=== PATIENT | male | born 1960 | race Caucasian/White ===

== ENCOUNTER 2020-04-23 12:36 | Outpatient (CLI) | payer BC, SELFPAY ==
--- NOTE | ~2020-04-23 | XR_ITS ---
EXAMINATION: XR chest 2V EXAM DATE: 04/23/2020 13:28 INDICATION: Shortness of breath. TECHNIQUE: Frontal and lateral projections of the chest obtained and reviewed. Comparison is made to prior examination from 09/07/2018. FINDINGS: The lungs are clear. There are no pleural effusions. The cardiomediastinal silhouette is within normal limits. There is no pneumothorax suspected. The bones and soft tissues are unremarkab le. IMPRESSION: Normal chest x-ray exam. Reviewed, dictated and finalized at location B. IMPRESSION: Normal chest x-ray exam.
[2020-04-23 13:31] LABS: Basophils Absolute Auto 0.1 K/mm3 (0.0-0.1); Basophils Percent Auto 0.7 % (0.2-1.2); Eosinophils Absolute Auto 0.2 K/mm3 (0-0.3); Eosinophils Percent Auto 3.2 % (0-4.4); Hematocrit 43.6 % (42.0-52.0); Hemoglobin 14.6 g/dL (14.0-18.0); Immature Granulocyte Absolute 0.02 K/mm3 (0.00-0.031); Immature Granulocyte Percent A 0.3 % (0-0.5); Lymphocytes Absolute Auto 2.62 K/mm3 (0.9-3.2); Lymphocytes Percent Auto 35.4 % (18.3-44.2); Mean Corpuscular HGB Conc 33.5 g/dl (32-36); Mean Corpuscular Hemoglobin 31.9 pg (26-34); Mean Corpuscular Volume 95.4 fl (80-100); Mean Platelet Volume 9.7 fl (7.4-10.4); Monocytes Absolute Auto 0.5 K/mm3 (0.1-0.6); Monocytes Percent Auto 6.5 % (2.6-8.5); Neutrophils Percent Auto 53.9 % (45.5-73.1); Platelet Count Result 247 k/mm3 (150-375); Red Blood Count 4.57 M/mm3 (4.6-6.20); Red Cell Distribution Width 13.3 % (11.5-14.5); White Blood Count 7.4 K/mm3 (4.5-10.0)
[2020-04-23 13:48] LABS: Alanine Aminotransferase 30 U/L (4-50); Albumin Level 4.5 g/dL (3.5-5.1); Alkaline Phosphatase 113 U/L (38-126); Aspartate Amino Transferase 31 U/L (17-59); Bilirubin,Total 0.2 mg/dL (0.2-1.3); Blood Urea Nitrogen 22 mg/dL (9-20); Calcium 9.7 mg/dL (8.4-10.2); Carbon Dioxide 28 mmol/L (22-30); Chloride 103 mmol/L (98-107); Estimated Glomerular Filt Rate 48; Glucose 114 mg/dL (75-110); Potassium 4.2 mmol/L (3.4-5.0); Sodium 141 mmol/L (137-145)
== END 2020-04-23 12:37 | disposition home or self-care (01) ==
PROVIDERS: PCP Internal Medicine; Visit Provider Internal Medicine
DX: R06.02 Shortness of breath (principal); R68.89 Other general symptoms and signs
CPT/HCPCS: 36415; 71046; 80053; 85025

== ENCOUNTER 2020-05-09 10:54 | Outpatient (CLI) | payer BC, SELFPAY ==
[2020-05-09 11:58] LABS: Cholesterol 240 mg/dL (0-200); HDL Direct 31 mg/dL; Triglycerides 353 mg/dL (<150)
[2020-05-09 12:08] LABS: LDL Cholesterol Direct 118 mg/dL
[2020-05-09 12:31] LABS: Prostate Specific Antigen 2.4 ng/mL (< OR = 4.0)
== END 2020-05-09 10:55 | disposition home or self-care (01) ==
LOC: ANHLAB 10:56
PROVIDERS: PCP Internal Medicine; Visit Provider Internal Medicine
DX: E78.1 Pure hyperglyceridemia (principal); Z12.5 Encounter for screening for malignant neoplasm of prostate
CPT/HCPCS: 36415; 80061; 84153; 84443; G0103

== ENCOUNTER 2023-11-15 00:40 | Day surgery (SDC) | payer BC, SELFPAY ==
[2023-10-19 11:30] VITALS: BMI 31.2
--- NOTE | 2023-11-11 13:20 | SUR.PREOP ---
Patient called regarding upcoming procedure. Reviewed preop instructions, appointment times, and procedure prep.
[2023-11-15 10:11] VITALS: BP 127/77; PULSE 62; RESP 20; TEMP 35.8; O2SAT 99
[2023-11-15] MEDS: LACTATED RINGERS 1,000 ML 150 ML IV CONT (10:25)
--- NOTE | 2023-11-15 10:42 | WPDANESEPPF ---
Anes - Initial Pre Proc Eval Procedure: Operation Date: 11/15/23 11:30 Proposed Procedures p Colonoscopy - Rashad Chou MD Date/Time: 11/15/23 10:42 Surgeon: Rashad Chou MD Pre Op Diagnosis: hx colon polyps Patient Data Age: 63 Gender: M Height: 1.83 m Weight: 97.6 kg Last Vital Signs Temp 96.5 F L 11/15/23 10:11 Pulse 62 11/15/23 10:11 Resp 20 11/15/23 10:11 BP 127/77 11/15/23 10:11 Pulse Ox 99 11/15/23 10:11 O2 Del Method Room Air 11/15/23 10:11 Allergies Allergy/AdvReac Type Severity Reaction Status Date / Time No Known Allergies Allergy Unknown Verified 11/15/23 10:09 Home Medications Medication Instructions Recorded Confirmed Type multivitamin 1 tablet PO DAILY 08/20/19 11/15/23 History aspirin 81 mg chewable tablet 81 mg PO DAILY 10/19/23 11/15/23 History Patient hx anesthesia problems: none Family hx anesthesia problems: none Results Review: All pre-operative results and documents have been reviewed as part of the pre-operative evaluation. [facility] Family History Family History (Updated 01/18/19 @ 08:57 by DOCTOR UNKNOWN) Father Hypertension Mother Family history of malignant neoplasm Patient's mother is , Onset Age: 80 Grandparent Family history of aortic aneurysm Malignant neoplasm of prostate Social History Social History Smoking status: Never smoker Second hand tobacco smoke exposure: No Alcohol intake: current Drinks per week: 2 Substance use type: does not use Living arrangements: with family Spiritual care concerns: No Anes - Eval Final PreProcedure Day of Procedure 11/15/23 10:42 Patient weight: obese Heart: regular rate and rhythm Lungs: clear to auscultation Airway: Mallampati scale class II Neurological: alert and oriented Last oral intake: >/= 8 hours ASA classification: II Emergent: no Anesthetic plan: proceed Anesthesia type and monitoring: general GIVS and standard monitoring Results Review: All pre-operative results and documents have been reviewed as part of the pre-operative evaluation. Informed Consent: The patient's anesthetic plan and its attendant risks and benefits were discussed with the patient/family/POA. Questions were solicited and answers provided to the satisfaction of the patient/family/POA.
--- NOTE | 2023-11-15 11:01 | PM.HPGS ---
History of Present Illness History of Present Illness Consent: Risks, benefits, and alternatives have been discussed and questions answered. Patient agrees to proceed with procedure. Chief complaint: hx colon polyps Narrative: Luisito Lechuga is a 63 year old male with colon polyp 7 years ago Review of Systems Constitutional: Constitutional: Denies headache(s) and Denies weakness Eyes: Eyes: Denies blurry vision ENT: Reports Normal hearing present, Denies headache(s) and Denies neck pain Cardiovascular: Cardiovascular: Denies chest pain and Denies dyspnea Respiratory: Respiratory: Denies dyspnea Gastrointestinal: Gastrointestinal: Reports no additional gastrointestinal complaints Genitourinary: Genitourinary: Denies dysuria Musculoskeletal: Musculoskeletal: Denies neck pain Integumentary/Breasts: Skin/Breast: Denies dry skin Neurologic: Reports Normal hearing present, Denies headache(s) and Denies weakness Psychiatric: Psychiatric: Denies anxiety Endocrine: Endocrine: Denies change in body appearance Hematologic/Lymphatic: Hematologic/Lymphatic: Denies easy bleeding Allergic/Immunologic: Allergic/Immunologic: Denies urticaria PMFSH Past Medical History Medical History (Updated 11/15/23 @ 11:02 by Rashad Chou MD) Colon polyp Family History Family History (Updated 01/18/19 @ 08:57 by DOCTOR UNKNOWN) Father Hypertension Mother Family history of malignant neoplasm Patient's mother is , Onset Age: 80 Grandparent Family history of aortic aneurysm Malignant neoplasm of prostate Social History Social History Smoking status: Never smoker Second hand tobacco smoke exposure: No Alcohol intake: current Drinks per week: 2 Substance use type: does not use Living arrangements: with family Spiritual care concerns: No Meds Home Medications and Allergies Home Medications Medication Instructions Recorded Confirmed Type multivitamin 1 tablet PO DAILY 08/20/19 11/15/23 History aspirin 81 mg chewable tablet 81 mg PO DAILY 10/19/23 11/15/23 History Allergies Allergy/AdvReac Type Severity Reaction Status Date / Time No Known Allergies Allergy Unknown Verified 11/15/23 10:09 Vital Signs Vital Signs - 24 hr 11/15/23 10:11 Temperature 96.5 F L Pulse Rate 62 Respiratory Rate 20 Blood Pressure 127/77 Pulse Oximetry 99 Oxygen Delivery Room Air Exam Const: General: comfortable and no acute distress HENMT: Face/Nose/Sinus: Normal nares present Eyes: General: appearance normal, both eyes and all related structures Neck: Neck: no JVD Resp: Auscultation: clear to auscultation bilaterally Cardio: Rate: regular rate Rhythm: regular rhythm GI: Inspection: non-distended GI Palp: Yes Soft to palpation Skin: General skin exam: normal color Neuro: General: gait normal Speech: normal speech Extrem: General: normal to inspection Psych: Mental Status: mental status grossly normal Assessment and Plan Assessment and plan (1) Colon polyp: Code(s): K63.5 - Polyp of colon Status: Acute Assessment and Plan: colonoscopy
[2023-11-15 11:25] VITALS: BP 82/52; PULSE 58; RESP 15; O2SAT 98
[2023-11-15 11:35] VITALS: BP 108/72; PULSE 60; RESP 17; O2SAT 98
[2023-11-15 11:45] VITALS: BP 108/75; PULSE 51; RESP 12; O2SAT 98
== END 2023-11-15 11:57 | disposition home or self-care (01) ==
PROVIDERS: PCP Physician Assistant; Visit Provider Internal Medicine Gastroenterology
PROC: 0DJD8ZZ Inspection of Lower Intestinal Tract, Via Natural or Artificial Opening Endoscopic (ICD-10-PCS; CPT 45378; principal; 2023-11-15 11:30)
DX: Z12.11 Encounter for screening for malignant neoplasm of colon (principal); E66.9 Obesity, unspecified; Z68.29 Body mass index [BMI] 29.0-29.9, adult; Z79.82 Long term (current) use of aspirin; Z86.010 Personal history of colon polyps; Z80.42 Family history of malignant neoplasm of prostate
CPT/HCPCS: 45378; J2704; J7120